=== PATIENT | female | born 1940 | race Caucasian/White ===

== ENCOUNTER → 2018-10-03 | Outpatient (CLI) | payer MEDICARE ==
[~2018-10-03] MED LIST: Ferrous Sulfat325 MG PO; Fruity C250 MG PO; GABA300 PO; GAVILAX17 GM PO; Omeprazole20 M1 PO
== END | disposition home or self-care (01) ==
LOC: LAB SHORT 13:15 → LAB 13:15
PROVIDERS: Nurse Practitioner Women's Health
DX: Z12.4 Encounter for screening for malignant neoplasm of cervix (principal)
CPT/HCPCS: G0123

== ENCOUNTER → 2018-10-09 | Outpatient (CLI) | payer MEDICARE | END | disposition home or self-care (01) | LOC: LAB SHORT 07:38 → LAB 07:38 | DX: N84.1 Polyp of cervix uteri (principal); N85.00 Endometrial hyperplasia, unspecified; N95.0 Postmenopausal bleeding | CPT/HCPCS: 88305 ==

== ENCOUNTER 2022-11-02 08:01 | Day surgery (SDC) | payer MEDICARE | END 2022-11-02 23:01 | disposition home or self-care (01) | LOC: MOI MAM 08:01 | DX: C50.911 Malignant neoplasm of unspecified site of right female breast (principal); Z17.0 Estrogen receptor positive status [ER+]; D24.1 Benign neoplasm of right breast | CPT/HCPCS: 19083; 19084; 77065; 88305; 88342; 88360; A4648 ==

== ENCOUNTER → 2022-11-09 | Outpatient (CLI) | payer MEDICARE ==
[2022-11-09 16:53] LABS: Anion Gap 6 mmol/L (6-16); Blood Urea Nitrogen 12 mg/dL (8-24); Bun/Creatinine Ratio 16.6 (12.0-20.0); CHOL/HDL RATIO 4.2; CO2, Blood 26 mmol/L (21-32); Calcium, Blood 9.1 mg/dL (8.5-10.1); Chloride, Blood 109 mmol/L (98-108); Cholesterol 225 mg/dL (50-200); Creatinine, Blood 0.73 mg/dL (0.40-1.00); Glomerular Filtration Rate 83 (60-); Glucose, Blood 93 mg/dL (70-99); HDL Cholesterol 54 mg/dL (>39); LDL/HDL RATIO 2.8; Low Density Lipoprotein Chol 149 mg/dL (0-110); Potassium, Blood 4.2 mmol/L (3.5-5.5); Sodium, Blood 141 mmol/L (136-145); Triglycerides 109 mg/dL (30-160); Very Low Density Lipoprot Chol 21 mg/dL (6-32)
[2022-11-12 00:08] LABS: HEMOGLOBIN A1C 5.6 % (4.8-5.6)
== END | disposition home or self-care (01) ==
LOC: LAB SHORT 10:32 → LAB 10:32
PROVIDERS: Physician Assistant
DX: R73.9 Hyperglycemia, unspecified (principal); E78.5 Hyperlipidemia, unspecified
CPT/HCPCS: 80048; 80061; 83036

== ENCOUNTER 2022-12-17 08:00 | Day surgery (SDC) | payer MEDICARE | END 2022-12-17 23:01 | disposition home or self-care (01) | LOC: MOI US 08:00 | DX: C50.911 Malignant neoplasm of unspecified site of right female breast (principal) ==

== ENCOUNTER 2023-01-03 10:18 | Day surgery (SDC) | payer MEDICARE ==
[~2023-01-03] VITALS: Ht 154.9 cm; Wt 88.5 kg
--- NOTE | 2023-01-03 14:14 | NUR ---
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
[2023-01-03 16:10] VITALS: BP 133/95
--- NOTE | 2023-01-03 16:11 | NUR ---
01/03/23 1611 Ivana Tyler PT C/O THROAT PAIN. NOW PT IS IN RECLINER, SHE IS EATING A POPSCICLE AND SEEMS TO BE RESTING COMFORTABLY. PT WAS GIVEN AN INCENTIVE SPIROMETER AND DEMONSTRATED HER UNDERSTANDING OF HOW TO USE IT.
== END 2023-01-03 16:34 | disposition home or self-care (01) ==
LOC: ORSCSDS 10:18 → NM 10:18 → ORSCSDS 11:30 → NM 11:30 → ORSCSDS 16:34
PROVIDERS: Surgery
PROC: 0HBT0ZX Excision of Right Breast, Open Approach, Diagnostic (ICD-10-PCS; principal; 2023-01-03 13:00)
PROC: 0HBT0ZZ Excision of Right Breast, Open Approach (ICD-10-PCS; principal; 2023-01-03 13:00)
DX: C50.911 Malignant neoplasm of unspecified site of right female breast (principal); D36.0 Benign neoplasm of lymph nodes; L82.1 Other seborrheic keratosis; Z17.0 Estrogen receptor positive status [ER+]; D24.1 Benign neoplasm of right breast; K21.9 Gastro-esophageal reflux disease without esophagitis; E66.9 Obesity, unspecified; Z68.36 Body mass index [BMI] 36.0-36.9, adult; Z79.899 Other long term (current) drug therapy
CPT/HCPCS: 38792; 76098; 88305; 88307; 88341; 88342; 88374; A9520; J0690; J1100; J1885; J2001; J2250; J2405; J2704; J2795; J3010; J7120; Q9968

== ENCOUNTER 2023-02-12 08:14 | Day surgery (SDC) | payer MEDICARE ==
[~2023-02-12] VITALS: Ht 154.9 cm; Wt 88.7 kg
[2023-02-12] VITALS (8 sets, daily range): BP systolic 103–138; BP diastolic 45–77
[~2023-02-12 08:14] MED LIST changes: +ALEN10 PO; +HYDROCODONE-AC1 EA19 PO
--- NOTE | 2023-02-12 09:39 | NUR ---
Ambulatory in Day Surgery Patient confirms NPO status and agrees with scheduled surgery. History, Chart, Medications and Allergies reviewed before start of procedure.Pre-Op teaching done. Pt verbalizes understanding. Patient States Post-Procedure ride home has been arranged.
[2023-02-12] MEDS ORDERED: ANASTROZOLE1 M7 PO (10:38)
--- NOTE | 2023-02-12 10:41 | NUR ---
Ambulatory in Day Surgery. History, Chart, Medications and Allergies reviewed before start of procedure. Pre-Op teaching done. Pt verbalizes understanding. Patient confirms NPO status and agrees with scheduled surgery. Lungs clear T/O to Auscultation. Patient reports completing Chlorhexadine shower X2 prior to admission to hospital. Patient States Post-Procedure ride home has been arranged.
--- NOTE | 2023-02-12 12:47 | NUR ---
PT TOLERATED WATER WELL. INCISION WITH EXOFIN GLUE C/D/I TO RIGHT BREAST. PT DOES NOT HAVE BREAST BINDER ON, PT STATES LAST TIME IT WAS VERY BOTHERSOME AND THAT DR CREWS WAS OKAY WITH HER WEARING HER OWN BRA LONG IT DID NOT RUB AGAINST THE INCISION. PT DENIED ANYTHING TO SNACK ON. NO C/O PAIN. Discharge instructions reviewed with patient. Patient verbalizes understanding. Copy given to patient to take home. Discharged via wheelchair to private car for ride home.
== END 2023-02-12 12:51 | disposition home or self-care (01) ==
LOC: ORSCMMR 08:14 → ORD 09:45 → ORSCMMR 09:45
PROVIDERS: Surgery
PROC: 0HBT0ZZ Excision of Right Breast, Open Approach (ICD-10-PCS; principal; 2023-02-12 09:45)
DX: C50.811 Malignant neoplasm of overlapping sites of right female breast (principal); Z17.0 Estrogen receptor positive status [ER+]; K21.9 Gastro-esophageal reflux disease without esophagitis; E66.9 Obesity, unspecified; Z68.37 Body mass index [BMI] 37.0-37.9, adult; E78.5 Hyperlipidemia, unspecified; Z85.42 Personal history of malignant neoplasm of other parts of uterus; Z79.899 Other long term (current) drug therapy
CPT/HCPCS: 88307; 88342; J0690; J1100; J2405; J2704; J3010; J7120

== ENCOUNTER 2023-03-07 06:42 | Day surgery (SDC) | payer MEDICARE ==
[~2023-03-07] VITALS: Ht 152.4 cm; Wt 89.6 kg
[~2023-03-07 06:42] MED LIST changes: +ANASTROZOLE1 M7 PO
--- NOTE | 2023-03-07 08:38 | NUR ---
03/07/23 0838 Kat Velasquez PREVIOUS BIOPSY SITES VISIBLE. NO OPEN AREAS.
[2023-03-07 11:30] VITALS: BP 115/65
--- NOTE | 2023-03-07 12:10 | NUR ---
03/07/23 1210 Jayden Harrell IN PACU, DR. CREWS REQUESTED UPDATE ON AMOUNT AND COLOR OF FLUID IN LEXI DRAIN BEFORE PO INTAKE . AT 1125, DR. CREWS WAS INFORMED THAT 45ML DARK RED FLUID HAD BEEN DRAINED FROM LEXI DRAIN. SHE APPROVED SIPS OF WATER AND REQUESTED ANOTHER UPDATE IN 20 MINUTES. 20 MINUTES LATER, DR. CREWS WAS INFORMED THAT ADDITIONAL 10ML DARK RED FLUID HAD BEEN EMPTIED FROM DRAIN. DR. CREWS ASSESSED PT AT 1200 AND APPROVED D/C AND PO INTAKE.
== END 2023-03-07 12:40 | disposition home or self-care (01) ==
LOC: ORSCSDS 06:42
PROVIDERS: Surgery
PROC: 0HBT0ZZ Excision of Right Breast, Open Approach (ICD-10-PCS; principal; 2023-03-07 08:00)
DX: C50.811 Malignant neoplasm of overlapping sites of right female breast (principal); Z17.0 Estrogen receptor positive status [ER+]; K21.9 Gastro-esophageal reflux disease without esophagitis; E78.5 Hyperlipidemia, unspecified; Z85.42 Personal history of malignant neoplasm of other parts of uterus
CPT/HCPCS: 88307; J0690; J1100; J1885; J2405; J2704; J2795; J3010; J7120

== ENCOUNTER → 2024-09-16 | Outpatient (CLI) | payer MEDICARE | LOC: LAB 11:15 → LAB SHORT 11:15 | DX: N76.0 Acute vaginitis (principal) ==